=== PATIENT | male | born 1945 | race Caucasian/White ===

== ENCOUNTER → 2023-01-15 07:51 | Outpatient (CLI) | payer MEDICARE, OTHER, SELFPAY ==
--- NOTE | 2023-01-15 07:53 | MR_ITS ---
FINAL REPORT TECHNIQUE: Multiplanar MR without contrast CLINICAL HISTORY: RIGHT SHOULDER PAIN. 1 month. weakness in arm. pain with certain movements. FINDINGS: Marrow signal: Unremarkable Glenohumeral joint: Mild degenerative changes. Small joint effusion. AC joint: Mild arthropathy without impingement. Rotator cuff: Focal full-thickness tear of the distal supraspinatus tendon. Mild partial-thickness tear of the distal infraspinatus tendon. Labrum: Labral degeneration without tear. Biceps tendon: Intra-articular long head biceps tendon intact. IMPRESSION: Focal full-thickness tear of the distal supraspinatus tendon with mild partial-thickness infraspinatus tear. Reviewed, Interpreted and Dictated by Jorge Garcia MD Transcribed by Di Stanford Authenticated and [facility]
--- NOTE | 2023-01-15 08:46 | XR_ITS ---
FINAL REPORT TECHNIQUE: Bone densitometry calculations of the lumbar spine and left hip were obtained. CLINICAL HISTORY: thoracic vertebra fx FINDINGS: Using L1-4, the bone mineral density of the spine is 0.752 g/cm2, corresponding to T-score of -3.1. Using the left hip, the bone mineral density of the femoral neck is 0.540 g/cm2, corresponding to a T-score of -2.9. NOTE: T-score: Standard deviation compared with peak bone mass of young adult mean. *Following the recommendations of the International Society of Bone densitometry, classification of hip BMD is based on the lower of two T-scores; total hip or femoral neck. IMPRESSION: Diminished bone mineral density of the lumbar spine and left hip consistent with osteoporosis. FRAX was not reported because some of the T-scores are at or above-2.5. Reviewed, Interpreted and Dictated by Jorge Garcia MD Transcribed by Di Stanford Authenticated and [facility]
== END ==
PROVIDERS: PCP Internal Medicine; Visit Provider Internal Medicine
DX: S22.000A Wedge compression fracture of unspecified thoracic vertebra, initial encounter for closed fracture (principal); M25.511 Pain in right shoulder; M25.60 Stiffness of unspecified joint, not elsewhere classified; M81.0 Age-related osteoporosis without current pathological fracture
CPT/HCPCS: 73221; 77080

== ENCOUNTER 2023-01-25 16:00 | Outpatient (RCR) | payer MEDICARE, OTHER, SELFPAY | END 2023-01-25 17:00 | disposition home or self-care (01) | LOC: PT 16:00 | PROVIDERS: Visit Provider Clinical Nurse Specialist Family Health | DX: S32.010A Wedge compression fracture of first lumbar vertebra, initial encounter for closed fracture (principal) | CPT/HCPCS: 97110; 97163; 97164; 97530 ==

== ENCOUNTER → 2023-02-07 15:57 | Outpatient (CLI) | payer MEDICARE, OTHER, SELFPAY | PROVIDERS: PCP Family Medicine; Visit Provider Nurse Practitioner Family | DX: R41.3 Other amnesia (principal); Z85.9 Personal history of malignant neoplasm, unspecified | CPT/HCPCS: 94762 ==

== ENCOUNTER → 2023-02-18 11:59 | Outpatient (CLI) | payer MEDICARE, OTHER, SELFPAY | PROVIDERS: PCP Family Medicine; Visit Provider Specialist | DX: R41.3 Other amnesia (principal); Z85.9 Personal history of malignant neoplasm, unspecified | CPT/HCPCS: 95816 ==

== ENCOUNTER → 2023-03-27 09:07 | Outpatient (CLI) | payer MEDICARE, OTHER, SELFPAY ==
[2023-03-27 10:20] LABS: Erythrocyte Sedimentation Rate 13 mm/hr (0-20)
[2023-03-27 10:23] LABS: Hemoglobin A1C 5.2 % (4.0-6.0)
[2023-03-27 10:45] LABS: Blood Urea Nitrogen 42 mg/dl (9-20); Estimated Glomerular Filt Rate 65 ml/min (>60); GFR (African American) 78 ML/MIN (>60)
[2023-03-29 09:46] LABS: C-Reactive Protein 0.7 mg/L (0-4)
== END ==
PROVIDERS: PCP Family Medicine; Visit Provider Nurse Practitioner Family
DX: R41.3 Other amnesia (principal); Z85.9 Personal history of malignant neoplasm, unspecified; R73.9 Hyperglycemia, unspecified; G47.34 Idiopathic sleep related nonobstructive alveolar hypoventilation
CPT/HCPCS: 36415; 82565; 83036; 84520; 85651; 86038; 86140

== ENCOUNTER 2023-04-04 08:00 | Outpatient (RCR) | payer MEDICARE, OTHER, SELFPAY | END 2023-04-04 08:05 | disposition home or self-care (01) | LOC: OT 08:00 | PROVIDERS: PCP Family Medicine; Visit Provider Student in an Organized Health Care Education/Training Program | DX: M25.511 Pain in right shoulder (principal); S46.011A Strain of muscle(s) and tendon(s) of the rotator cuff of right shoulder, initial encounter | CPT/HCPCS: 97010; 97014; 97016; 97110; 97140; 97164; 97165; 97530; G0283 ==

== ENCOUNTER → 2023-04-24 09:12 | Outpatient (CLI) | payer MEDICARE, OTHER, SELFPAY ==
[2023-04-24 11:08] LABS: Anion Gap 14.5 mEq/L (5-15); Blood Urea Nitrogen 28 mg/dl (9-20); Calcium 9.4 mg/dl (8.4-10.2); Carbon Dioxide 26 mmol/L (22.0-30.0); Chloride 103 mmol/L (98-107); Estimated Glomerular Filt Rate 72 ml/min (>60); GFR (African American) 87 ML/MIN (>60); Glucose 88 mg/dl (74-100); Potassium 4.5 mmoL/L (3.5-5.1); Sodium 139 mmol/L (136-145)
[2023-04-24 11:52] LABS: Prostate Specific Ag, Diagnost 11.3 ng/ml (0.0-4.0)
== END ==
PROVIDERS: Specialist; PCP Internal Medicine; Visit Provider Urology
DX: R41.3 Other amnesia (principal); R73.9 Hyperglycemia, unspecified; C61 Malignant neoplasm of prostate; R97.20 Elevated prostate specific antigen [PSA]
CPT/HCPCS: 36415; 80048; 84153

== ENCOUNTER → 2023-05-06 08:51 | Outpatient (CLI) | payer MEDICARE, OTHER, SELFPAY ==
--- NOTE | 2023-05-06 08:52 | MR_ITS ---
FINAL REPORT CLINICAL HISTORY: memory loss, abn brain mri 2021, hx ca, eval metas FINDINGS: Multiplanar MR imaging of the brain was performed without and with contrast. There is mild abnormal signal throughout the subcortical white matter bilaterally likely related to atrophy. There is [place] septum pellucidum. No abnormal extra-axial fluid collection is seen. The ventricular size is within normal limits. There is no evidence of shift of the midline structures. The posterior fossa and brainstem have an unremarkable appearance. No area of abnormal restricted diffusion is identified. No abnormal contrast enhancement is seen. Normal major vessel vascular flow voids are noted. There is mild right maxillary mucoperiosteal thickening. IMPRESSION: No acute intracranial abnormality identified. Reviewed, Interpreted and Dictated by Shreyas Rendon MD Transcribed by Indu Brown Authenticated and [facility]
[2023-05-06 09:14] LABS: Blood Urea Nitrogen 23 mg/dl (9-20); Estimated Glomerular Filt Rate 65 ml/min (>60); GFR (African American) 78 ML/MIN (>60)
== END ==
PROVIDERS: PCP Internal Medicine; Visit Provider Nurse Practitioner Family
DX: R41.3 Other amnesia (principal); Z85.9 Personal history of malignant neoplasm, unspecified
CPT/HCPCS: 70553; 82565; 84520; A9576

== ENCOUNTER → 2023-05-15 20:10 | Outpatient (CLI) | payer MEDICARE, OTHER, SELFPAY | PROVIDERS: PCP Internal Medicine; Visit Provider Nurse Practitioner Family | DX: G47.30 Sleep apnea, unspecified (principal); G47.34 Idiopathic sleep related nonobstructive alveolar hypoventilation; R41.3 Other amnesia | CPT/HCPCS: 95810 ==

== ENCOUNTER → 2023-05-20 11:04 | Outpatient (CLI) | payer MEDICARE, OTHER, SELFPAY ==
--- NOTE | 2023-05-20 11:08 | XR_ITS ---
FINAL REPORT CLINICAL HISTORY: COUGH..pos covid COMPARISON: None FINDINGS: Emphysema is noted. No acute findings. The mediastinum has a normal appearance. The cardiac silhouette is unremarkable. IMPRESSION: Emphysema without acute findings. Reviewed, Interpreted and Dictated by Jorge Garcia MD Transcribed by Annette Farmer Authenticated and . [facility]
== END ==
LOC: RAD 11:05
PROVIDERS: PCP Nurse Practitioner; Visit Provider Nurse Practitioner
DX: R05.9 Cough, unspecified (principal)
CPT/HCPCS: 71046

== ENCOUNTER 2023-06-25 09:26 | Outpatient (CLI) | payer MEDICARE, OTHER, SELFPAY ==
--- NOTE | 2023-06-25 09:38 | XR_ITS ---
FINAL REPORT TECHNIQUE: Chest PA & Lateral CLINICAL HISTORY: BRONCHITIS FINDINGS: 2 views of the chest were performed. The heart size is normal. The mediastinum is within normal limits. There are mild right lung opacities favoring atelectasis. There are no pleural effusions. There is no pneumothorax. There is a moderate mid thoracic compression fracture favored to be chronic. IMPRESSION: Mild right lung opacities favoring atelectasis. Reviewed, Interpreted and Dictated by Juan Carlos Das III, MD Transcribed by Pb Briggs Authenticated and [facility]
== END 2023-06-25 23:59 ==
LOC: RAD 09:29
PROVIDERS: PCP Family Medicine; Visit Provider Family Medicine
DX: J40 Bronchitis, not specified as acute or chronic (principal); Z87.891 Personal history of nicotine dependence
CPT/HCPCS: 71046

== ENCOUNTER 2023-07-31 08:46 | Emergency (ER) | payer MEDICARE, OTHER, SELFPAY ==
--- NOTE | 2023-07-31 08:46 | ECG_ITS ---
APPROVED REPORT Exam: Resting ECG HR:57 bpm ECG Measurements Heart Rate 57 AXES NC 196 P 52 QRSd 96 QRS 32 QT 439 T 59 QTc 433 Conclusion SINUS BRADYCARDIA BORDERLINE ECG UNCONFIRMED REPORT Electronically signed by : Moy Orosco MD 07/31/2023 21:45:49
--- NOTE | 2023-07-31 08:53 | XR_ITS ---
PROCEDURE INFORMATION: Exam: XR Chest Exam date and time: 07/31/2023 8:59 AM Age: 78 years old Clinical indication: Other: Syncope; Additional info: Presyncope TECHNIQUE: Imaging protocol: Radiologic exam of the chest. Views: 1 view. COMPARISON: CR XR CHEST 2V 06/25/2023 9:41 AM FINDINGS: Lungs: Upper lobe emphysematous changes present. Pleural spaces: Unremarkable. No pleural effusion. No pneumothorax. Heart/Mediastinum: Calcified mediastinal lymphadenopathy is noted. Bones/joints: Unremarkable. IMPRESSION: COPD. Granulomatous disease.
[2023-07-31 08:57] VITALS: BP 127/64; PULSE 57; RESP 12; TEMP 36.4; O2SAT 100; BMI 23.1
--- NOTE | 2023-07-31 08:57 | ED_ITS ---
Discharge Plan Disposition Patient Disposition: Home, Self-Care Chief Complaint: Weakness Prescriptions Prescriptions: No Action donepezil 10 mg tablet 10 mg PO HS 90 Days Qty: 90 1RF memantine 10 mg tablet 10 mg PO BID 90 Days Qty: 180 1RF tamsulosin 0.4 mg capsule 0.4 mg PO HS pravastatin 40 mg tablet 40 mg PO DAILY tramadol 5 mg/mL solution 25 mg PO DAILY PRN Referrals Follow up/Referrals: Amaya Collins MD [Primary Care Provider] - See instructions Activity Restrictions/Add. Instructions Additional Instructions/Restrictions: Call your family doctor to establish care for this visit to the emergency department and schedule follow-up within 48 hours to ensure improvement. If you have any worsening of your condition or any other concerning signs or symptoms, return to the emergency department or your primary care doctor for further evaluation. If you continue to have similar symptoms, talk to your family doctor about scheduling follow-up with cardiology for further evaluation. Clinical Impressions Clinical Impression: Vasovagal near-syncope Discharge ED Provider: Harpreet Pa General Adult HPI General Chief complaint: Weakness Stated complaint: weakness Time Seen by Provider: 07/31/23 08:53 History of Present Illness HPI narrative: 78-year-old male history of progressive dementia, sleep apnea, hypertension, hyperlipidemia, BPH presenting with near syncope. Patient states he was eating breakfast with his family just prior to arrival. He felt sweaty, clammy, lightheaded, weak, then slid out of his chair into the floor. Had 1 episode of nonbloody, nonbilious emesis just before falling. Denies loss of consciousness. Denies hitting his head. States that right now he feels a lot better, not having chest pain, shortness of breath, abdominal pain, diarrhea, or any other concerns. Related Data Home Medications Medication Instructions Recorded Confirmed pravastatin 40 mg tablet 40 mg PO DAILY 01/30/23 07/10/23 tamsulosin 0.4 mg capsule 0.4 mg PO HS 01/30/23 07/10/23 tramadol 5 mg/mL oral solution 25 mg PO DAILY PRN 01/30/23 07/10/23 Previous Rx's Medication Instructions Recorded donepezil 10 mg tablet 10 mg PO HS 90 days #90 tabs 07/10/23 memantine 10 mg tablet 10 mg PO BID 90 days #180 tabs 07/10/23 Allergies Allergy/AdvReac Type Severity Reaction Status Date / Time hydrocodone AdvReac Intermediate Hallucinati Verified 07/31/23 09:02 [facility] Disclaimer: The information contained in this section may have been updated after the jewel connell was seen, as this information can be updated by other users. Surgical History History of right hip replacement History of total right knee replacement Social History Smoking Status: Never smoker alcohol intake: current substance use type: denies use current occupational status: retired Travel in the last 8 weeks: None household members: family housing: house marital status: ROS Obtained: Yes All systems reviewed & no additional complaints except as documented Physical Exam General General appearance: alert and in no apparent distress Head Head exam: atraumatic and normocephalic Eye Eye exam: Present normal appearance, PERRL and EOMI ENT ENT exam: Present mucous membranes moist Neck Neck exam: Present normal inspection, full ROM and trachea midline Respiratory Respiratory exam: Present normal lung sounds bilaterally; Absent respiratory distress, wheezes, stridor, accessory muscle use or prolonged expiratory phase Cardiovascular Cardiovascular exam: Present regular rate (intermittent bradycardia) and normal rhythm Abdominal Exam Abdominal exam: Present soft; Absent distention, tenderness, guarding, rebound or rigidity Extremities Exam Extremities exam: Absent edema Neurological Exam Neurological exam: Present alert, oriented X3, CN II-XII intact and normal gait; Absent motor sensory deficit Skin Skin exam: Present warm and dry; Absent diaphoresis or erythema Medical Decision Making Medical Records Medical records reviewed: Yes I reviewed the patient's medical records. Juan Inquiry Pt receiving controlled substance: No Juan was queried for this patient: No Vital Signs: 07/31/23 08:57 07/31/23 09:31 Temperature 97.6 F Temperature Source Oral Pulse Rate 70 Pulse Rate [Left] 57 L Respiratory Rate 12 14 Blood Pressure 135/60 Blood Pressure [Right Arm] 127/64 Blood Pressure Mean 85 Blood Pressure Mean [Right Arm] 85 Blood Pressure Source [Right Arm] Automatic Cuff Blood Pressure Position [Right Arm] Sitting 02 Sat by Pulse Oximetry 100 99 Lab Data Lab Results 07/31/23 09:00: WBC 9.2, RBC 4.75, Hgb 15.4, Hct 44.7, MCV 94.1 H, MCH 32.4 H, MCHC 34.5, RDW 12.7, Plt Count 216, MPV 8.1, Neut % (Auto) 65.3, Lymph % (Auto) 22.8, Graves % (Auto) 7.2, Eos % (Auto) 3.8, Baso % (Auto) 0.9, Neut # (Auto) 6.0, Lymph # (Auto) 2.1, Graves # (Auto) 0.7, Eos # (Auto) 0.4, Baso # (Auto) 0.1, Sodium 137, Potassium 4.0, Chloride 104, Carbon Dioxide 28, Anion Gap 9.0, BUN 22 H, Creatinine 1.00, Estimated Creat Clear 53, Estimated GFR 72, Est GFR ( Amer) 87, Glucose 94, Calcium 9.3, Phosphorus 3.5, Magnesium 2.1, Total Bilirubin 0.5, AST 33, ALT 23, Alkaline Phosphatase 56, Troponin I < 0.01, Total Protein 6.6, Albumin 4.2, Globulin 2.4, Albumin/Globulin Ratio 1.8 07/31/23 09:00 07/31/23 09:00 Orders (Tests/Meds): ED MEDICATIONS Discontinued Medications Generic Name Dose Route Start Last Admin Trade Name Freq PRN Reason Stop Dose Admin Lactated Ringer's 1,000 mls @ 999 mls/hr 07/31/23 08:53 07/31/23 09:05 Lactated Ringer's 1000 Ml Bag IV 07/31/23 09:53 999 mls/hr .Q1H1M ONE Administration ORDERS Category Date Time Status CXR --portable [XR chest portable] Stat Exams 07/31/23 08:53 Completed POCUS Point of Care (ER Only) Stat Exams 07/31/23 08:55 Ordered CBC w/Auto Diff [Complete Blood Count Auto Diff] Stat Lab 07/31/23 09:00 Completed CMP [Comprehensive Metabolic Panel] Stat Lab 07/31/23 09:00 Completed Magnesium Stat Lab 07/31/23 09:00 Completed Phosphorous Stat Lab 07/31/23 09:00 Completed Trop I [Troponin I] Stat Lab 07/31/23 09:00 Completed Troponin I Q3H Lab 07/31/23 12:00 Ordered Troponin I Q3H Lab 07/31/23 15:00 Ordered UA [Urinalysis and Microscopic] Stat Lab 07/31/23 08:53 Ordered ECG initial [place] Routine Y 07/31/23 08:46 Completed Medical Decision Narrative: 78-year-old male history of progressive dementia, sleep apnea, hypertension, hyperlipidemia, BPH presenting with near syncope. Patient states he was eating breakfast with his family just prior to arrival. He felt sweaty, clammy, lightheaded, weak, then slid out of his chair into the floor. Had 1 episode of nonbloody, nonbilious emesis just before falling. Denies loss of consciousness. Denies hitting his head. States that right now he feels a lot better, not having chest pain, shortness of breath, abdominal pain, diarrhea, or any other concerns. History was obtained via conversation with patient and EMS. On arrival, patient hemodynamically stable, alert, oriented x4, appropriate, GCS 15, moving all extremities spontaneously, pupils equal and reactive to light. Full physical exam performed and significant for well-appearing male no acute distress. Clothing is damp, but patient not currently diaphoretic. Lungs are clear to auscultation bilaterally, cardiac exam within normal limits. No lower extremity edema. Patient neurologically intact. Abdomen is soft, nontender, nondistended. Neurologically intact. Differential includes vasovagal presyncope, orthostatic presyncope, arrhythmia, ACS, OR, pneumothorax, medication induced, among others. Patient was given LR fluid bolus for symptomatic management and correction of underlying abnormalities. Workup independently interpreted and significant for nonactionable CBC or chemistry. Troponin negative. See radiology read for full review of final results. Independent interpretation of EKG shows 57 beats a minute sinus rhythm without ST or T wave changes concerning for acute ischemia. NM, QRS, QT intervals within normal limits. [place] normal. [place] syncope negative and low risk. On reevaluation, patient still feeling much better and asymptomatic. Given patient presentation, workup, history, this most likely represents vasovagal pre-syncope. Because patient at baseline without signs or symptoms of clinical decompensation, deemed appropriate for discharge. Results were relayed to patient who voiced understanding and were agreeable to outpatient management and follow up. At the time of discharge the patient was hemodynamically stable, tolerating PO, and mobilizing appropriately. Critical Care Critical Care Time Critical Care Time: No
[2023-07-31 09:04] LABS: Basophils # 0.1 K/mm3 (0-0.2); Basophils % 0.9 % (0.1-2.0); Eosinophils # 0.4 K/mm3 (0.0-0.4); Eosinophils % 3.8 % (0.1-12.0); Hematocrit 44.7 % (42.0-52.0); Hemoglobin 15.4 g/dL (14.1-18.0); Lymphocytes # 2.1 K/mm3 (0.7-4.5); Lymphocytes % 22.8 % (10-50); Mean Corpuscular HGB Conc 34.5 g/dL (31.8-35.4); Mean Corpuscular Hemoglobin 32.4 pg (27.0-31.2); Mean Corpuscular Volume 94.1 fl (80-94); Mean Platelet Volume 8.1 fl (7.4-10.4); Monocytes # 0.7 K/mm3 (0.1-1.0); Monocytes % 7.2 % (1.7-9.3); Neutrophils % 65.3 % (37.0-80.0); Platelet Count 216 K/mm3 (142-424); Red Blood Count 4.75 M/mm3 (4.60-6.20); Red Cell Distribution Width 12.7 % (11.5-17.5); White Blood Count 9.2 K/mm3 (4.8-10.8)
[2023-07-31] MEDS: LACTATED RINGERS 1000ML 1,000 ML 999 ML IV (09:05)
[2023-07-31 09:10] LABS: Chloride 104 mmol/L (98-107)
[2023-07-31 09:11] LABS: Sodium 137 mmol/L (136-145)
[2023-07-31 09:13] LABS: Alanine Aminotransferase 23 U/L (12-78); Aspartate Amino Transferase 33 U/L (17-59); Blood Urea Nitrogen 22 mg/dl (9-20); Carbon Dioxide 28 mmol/L (22.0-30.0); Creatinine Clearance Estimated 53 mL/min (50-200); Estimated Glomerular Filt Rate 72 ml/min (>60); GFR (African American) 87 ML/MIN (>60)
[2023-07-31 09:14] LABS: Albumin Level 4.2 g/dl (3.5-5.0); Albumin/Globulin Ratio 1.8 (1.1-1.8); Alkaline Phosphatase 56 U/L (38-126); Bilirubin,Total 0.5 mg/dl (0.2-1.3); Calcium 9.3 mg/dl (8.4-10.2); Globulin 2.4 g/dL (1.3-3.2); Glucose 94 mg/dl (74-100); Magnesium 2.1 mg/dl (1.6-2.3); Phosphorous 3.5 mg/dl (2.5-4.5); Total Protein,Serum 6.6 g/dl (6.3-8.2)
[2023-07-31 09:28] LABS: Troponin I < 0.01 ng/ml (0.00-0.034)
[2023-07-31 09:31] VITALS: BP 135/60; PULSE 70; RESP 14; O2SAT 99
--- NOTE | 2023-07-31 09:45 | PC.NURSE ---
pt given urinal for urine sample, unable to urinate at this time
[2023-07-31 10:00] VITALS: BP 138/75; PULSE 56; RESP 16; O2SAT 96
[2023-07-31 11:06] VITALS: BP 126/66; PULSE 53; RESP 13; TEMP 36.7; O2SAT 94
== END 2023-07-31 11:06 | disposition home or self-care (01) ==
PROVIDERS: Emergency Provider Emergency Medicine; PCP Family Medicine
DX: R55 Syncope and collapse (principal); R53.1 Weakness; R11.10 Vomiting, unspecified; F03.90 Unspecified dementia, unspecified severity, without behavioral disturbance, psychotic disturbance, mood disturbance, and anxiety; G47.30 Sleep apnea, unspecified; I10 Essential (primary) hypertension; E78.5 Hyperlipidemia, unspecified; R00.1 Bradycardia, unspecified
CPT/HCPCS: 71045; 80053; 83735; 84100; 84484; 85025; 93005; 96360; 99285

== ENCOUNTER 2023-09-12 10:00 | Outpatient (RCR) | payer MEDICARE, OTHER, SELFPAY | END 2023-09-12 11:15 | disposition home or self-care (01) | LOC: OT 10:00 | PROVIDERS: Visit Provider Family Medicine | DX: M25.511 Pain in right shoulder (principal) | CPT/HCPCS: 97010; 97014; 97110; 97140; 97165; 97530; G0283 ==

== ENCOUNTER 2024-08-10 15:30 | Outpatient (CLI) | payer MEDICARE, OTHER, SELFPAY ==
[2024-08-10 15:28] LABS: Coronavirus 19, PCR Not Detected (NotDetected); Influenza B, PCR Not Detected (NotDetected)
--- NOTE | 2024-08-10 15:35 | XR_ITS ---
FINAL REPORT CLINICAL HISTORY: cough/congestion COMPARISON: 06/25/2023 FINDINGS: PA and lateral views of the chest were obtained. The cardiac and mediastinal silhouettes are within normal limits. Underlying emphysema is noted. There is evidence of prior granulomatous disease. The lungs are otherwise clear.. There is no pleural effusion or pneumothorax. No acute osseous abnormality is identified. IMPRESSION: No radiographic evidence of acute cardiac or pulmonary disease. Reviewed, Interpreted and Dictated by Elidia Singletary MD Transcribed by Annette Farmer Authenticated and [facility]
[2024-08-10 16:06] LABS: Influenza A, PCR Detected (NotDetected)
== END 2024-08-10 23:59 | disposition home or self-care (01) ==
PROVIDERS: PCP Family Medicine; Visit Provider Student in an Organized Health Care Education/Training Program
DX: J10.1 Influenza due to other identified influenza virus with other respiratory manifestations (principal); R50.9 Fever, unspecified; R05.9 Cough, unspecified
CPT/HCPCS: 71046; 87636

== ENCOUNTER 2024-10-23 17:18 | Emergency (ER) | payer MEDICARE, OTHER, SELFPAY ==
[2024-10-23 17:31] VITALS: BP 155/78; PULSE 69; RESP 18; TEMP 36.6; O2SAT 97; BMI 23.1
--- NOTE | 2024-10-23 17:31 | ED_ITS ---
<Statement entered by Kusum Hickey MD - 10/23/24 19:41> I was consulted by the JOJO, and we discussed the complexity of the problems being addressed. I approved the treatment and management plan for this patient's care in the emergency department, thus performing a substantive portion of the medical decision making. Kusum Hickey MD, GEENA, FACEP Discharge Plan Disposition Patient Disposition: Home, Self-Care Condition: Good Prescriptions Prescriptions: No Action tamsulosin 0.4 mg capsule 0.4 mg PO HS carvedilol 3.125 mg tablet 3.125 mg PO BID Patient Comments: TAKE 1 TABLET BY MOUTH EVERY 12 HOURS oxybutynin chloride 5 mg tablet 5 mg PO DAILY Patient Comments: TAKE 1 TABLET BY MOUTH TWICE DAILY levofloxacin 750 mg tablet 750 mg PO DAILY Qty: 7 0RF benzonatate 100 mg capsule 100 mg PO BID PRN (Reason: cough) Qty: 20 0RF memantine 10 mg tablet 10 mg PO BID 90 Days Qty: 180 1RF donepezil 10 mg tablet See Rx Instructions .ROUTE .COMPLEX Qty: 90 0RF Dose Instruction: TAKE 1 TABLET BY MOUTH AT BEDTIME NIGHTLY Rx Instructions: TAKE 1 TABLET BY MOUTH AT BEDTIME NIGHTLY Referrals Follow up/Referrals: Giuseppe Verdugo MD [Primary Care Provider] - See instructions Activity Restrictions/Add. Instructions Additional Instructions/Restrictions: I recommend Tylenol Motrin for any aches and pains. If you have any continued new or worsening signs or symptoms follow-up with your PCP or return to the ER as needed. Clinical Impressions Clinical Impression: Ring or other jewelry causing external constriction, initial encounter Print Language Print Language: Urdu Discharge ED Provider: Kusum Hickey General Adult HPI General Chief complaint: Recheck/Abnormal Lab/Rx Stated complaint: Ring stuck on Rt middle finger, swollen Time Seen by Provider: 10/23/24 17:31 History of Present Illness HPI narrative: Patient presents for evaluation of a ring stuck on his finger. Patient put a ring on his right middle finger yesterday and could not get it off. His finger swollen and began to be painful so he came to the emergency department to have it cut off. He attempted at home but could not. He is neurovascular intact distally has not lost motor or sensory still has full range of motion Related Data Home Medications ?Medication ?Instructions ?Recorded ?Confirmed tamsulosin 0.4 mg capsule 0.4 mg PO HS 01/30/23 08/10/24 carvedilol 3.125 mg tablet 3.125 mg PO BID 08/10/24 08/10/24 oxybutynin chloride 5 mg tablet 5 mg PO DAILY 08/10/24 08/10/24 Previous Rx's ?Medication ?Instructions ?Recorded memantine 10 mg tablet 10 mg PO BID 90 days #180 tabs 07/29/24 benzonatate 100 mg capsule 100 mg PO BID PRN cough #20 caps 08/10/24 levofloxacin 750 mg tablet 750 mg PO DAILY #7 tabs 08/10/24 donepezil 10 mg tablet See Rx Instructions .Route 09/14/24 .COMPLEX #90 tabs Allergies Allergy/AdvReac Type Severity Reaction Status Date / Time hydrocodone AdvReac Intermediate Hallucinati Verified 08/10/24 09:52 [facility] Disclaimer: The information contained in this section may have been updated after the patient was seen, as this information can be updated by other users. Surgical History History of right hip replacement History of total right knee replacement Family History Other Alcoholism Social History Smoking Status: Never smoker alcohol intake: current alcohol intake frequency: a few times a month substance use type: denies use current occupational status: retired Travel in the last 8 weeks?: None household members: family housing: house marital status: Have you lived/traveled outside [place] in past 30 days?: No Contact w/someone who lives/traveled outside US past 30 days?: No Exposure to someone with infectious disease in past 14 days?: No Do you have a fever (greater than 100.4 F or 38 C)?: No Have you tested positive for COVID-19?: No Exposed to someone with COVID-19 in past 14 days?: No Do you have a sore throat?: No Do you have a cough?: No Do you have any weakness?: No Do you have any diarrhea?: No Are you experiencing any unusual bleeding?: No Do you have any muscle aches/pain?: No Do you have any abdominal pain?: No Are you experiencing loss of taste or smell?: No Other Medical History Have you received the Pneumonia Vaccine: No ROS Obtained: Yes Systems reviewed as appropriate & no additional complaints except as documented Physical Exam General General appearance: alert Respiratory Respiratory exam: Present normal lung sounds bilaterally Cardiovascular Cardiovascular exam: Present regular rate Neurological Exam Neurological exam: Present alert and oriented X3 Medical Decision Making Medical Records Screening: Per USPSTF and CDC recommendations, given the prevalence of disease in our region, it is our hospital?s policy to screen for HIV and viral Hepatitis for all patients aged 18 and over and those with ongoing risk factors. Juan Inquiry Pt receiving controlled substance: No Vital Signs: 10/23/24 17:31 10/23/24 17:43 Temperature 97.9 F 97.9 F Temperature Source Oral Pulse Rate 80 Pulse Rate [Radial] 69 Respiratory Rate 18 20 Blood Pressure 150/74 H Blood Pressure [Right Arm] 155/78 H Blood Pressure Mean [Right Arm] 103 Blood Pressure Source Automatic Cuff Blood Pressure Source [Right Arm] Automatic Cuff Blood Pressure Position [Right Arm] Sitting 02 Sat by Pulse Oximetry 97 Oxygen Delivery Method Room Air Room Air Orders (Tests/Meds): ORDERS Category Date Time Status HIV Combo Stat Lab 10/23/24 17:34 Ordered Hepatitis C Ab Qual. W/ RFX Stat Lab 10/23/24 17:34 Ordered Medical Decision Narrative: In summary patient is a 79-year-old male [facility] stuck on his right middle finger. Patient is hemodynamically stable upon arrival, afebrile. Physical exam is remarkable for a swollen middle digit around the ring however he is neurovascular intact distally with good cap refill. He retains full range of motion.. Differential diagnosis includes constriction by ring or jewelry versus possible vascular compromise although physical exam does not show any red flags for that so that alternative diagnosis would not pursue. Initial workup was considered however again patient has no red flags to suggest vascular or neurologic compromise thus deferred. Initial interventions cutting of the ring for removal. Ring was cut and easily removed with [employer] trauma allison and the patient has full range of motion and is neurovascularly intact with cap refill less than 2 seconds and no pain. Thus patient is appropriate for discharge with recommendations for local treatment if he has any pain or swelling with Tylenol Motrin and follow-up PCP if he has any continued new or worsening signs or symptoms as needed. Critical Care Critical Care Time Critical Care Time: No
[2024-10-23 17:43] VITALS: BP 150/74; PULSE 80; RESP 20; TEMP 36.6; O2SAT 98
== END 2024-10-23 17:44 | disposition home or self-care (01) ==
PROVIDERS: Emergency Provider Student in an Organized Health Care Education/Training Program; PCP Family Medicine
DX: S60.442A External constriction of right middle finger, initial encounter (principal); W49.04XA Ring or other jewelry causing external constriction, initial encounter
CPT/HCPCS: 99282

== ENCOUNTER 2024-11-20 16:19 | Outpatient (CLI) | payer MEDICARE, OTHER, SELFPAY ==
--- NOTE | 2024-11-20 16:22 | MR_ITS ---
PROCEDURE INFORMATION: Exam: MR Head Without Contrast Exam date and time: 11/20/2024 4:26 PM Age: 79 years old Clinical indication: Altered mental status/memory loss; Additional info: Dementia TECHNIQUE: Imaging protocol: Magnetic resonance imaging of the head without contrast. COMPARISON: MR HEAD/BRAIN WO/W CON 05/06/2023 9:11 AM FINDINGS: Brain: Moderate-severe generalized cerebral/cerebellar atrophy. Small frontal and parietal white matter T2/FLAIR hyperintense foci which are nonspecific but most commonly associated with chronic microvascular ischemia in this age group, with stable pattern from 05/06/2023. There are no extra-axial fluid collections. Mild-moderate prominence of the peripheral CSF spaces, related to generalized atrophy. No evidence of acute intracranial ischemia/infarct. No diffusion restriction. No intracranial mass lesions. No midline shift or herniation. IACs are normal. Cerebral ventricles: Moderate compensatory ventriculomegaly secondary to central atrophy. Cavum vergae configuration noted. Pituitary gland and sella: Sella normal. Bones: No acute osseous abnormalities. Paranasal sinuses: Mucosal thickening in the bilateral posterior ethmoid sinuses suggesting mild chronic sinus inflammatory disease. No fluid levels. The other paranasal sinuses are clear. Mastoid air cells: Mastoid air cells are clear. Orbital cavities: No acute intraorbital findings. Prior bilateral ocular cataract surgery. Vasculature: Normal flow voids are maintained in the major arterial vascular distributions and dural venous sinuses. Soft tissues: No acute soft tissue abnormalities. IMPRESSION: 1. No acute intracranial process. No evidence of ischemia/infarct. No significant change from 05/06/2023. 2. Moderate-severe generalized cerebral/cerebellar atrophy with mild chronic microvascular changes. 3. Mild chronic ethmoid sinusitis.
== END 2024-11-20 23:59 | disposition home or self-care (01) ==
LOC: RAD 16:19
PROVIDERS: PCP Family Medicine; Visit Provider Psychiatry & Neurology Neurology
DX: G31.89 Other specified degenerative diseases of nervous system (principal); F02.80 Dementia in other diseases classified elsewhere, unspecified severity, without behavioral disturbance, psychotic disturbance, mood disturbance, and anxiety; J32.2 Chronic ethmoidal sinusitis
CPT/HCPCS: 70551